=== PATIENT | male | born 1990 | race Caucasian/White ===

== ENCOUNTER 2016-12-17 20:40 | Emergency (ER) | payer SELFPAY ==
[~2016-12-17 20:40] MED LIST: ABILIFY PO; ALBUTEROL17 GM INH; CONCERTA PO; IBUPROFEN PO; IBUPROFEN800 MG PO; LORTAB 5/500 TA1 TA1 PO; MELATONIN3 MG PO; MOTRIN400 MG PO; OMEPRAZOLE40 MG PO; PEPCID40 MG PO; PHENERGAN DM SYRUP PO; PROZAC PO; RONDEC SYRUP PO; SEROQUEL PO; TOPAMAX PO; ZITHROMAX PO; ZOFRAN ODT4 MG PO
== END 2016-12-17 21:36 | disposition left against medical advice (07) ==
LOC: CED 20:40
DX: Z53.21 Procedure and treatment not carried out due to patient leaving prior to being seen by health care provider (principal)

== ENCOUNTER 2016-12-18 13:32 | Emergency (ER) | payer OTHER | END 2016-12-18 16:00 | disposition home or self-care (01) | LOC: CED 13:32 → CFTX 13:32 → CED 15:23 → CFTX 16:00 | DX: S31.010A Laceration without foreign body of lower back and pelvis without penetration into retroperitoneum, initial encounter (principal); F17.210 Nicotine dependence, cigarettes, uncomplicated; W45.8XXA Other foreign body or object entering through skin, initial encounter; Y92.69 Other specified industrial and construction area as the place of occurrence of the external cause; Y99.0 Civilian activity done for income or pay | CPT/HCPCS: 99283 ==